=== PATIENT | male | born 1975 | race Hispanic/Latino ===

== ENCOUNTER 2017-02-14 10:15 | Observation (INO) | payer MEDICAID, OTHER ==
[2017-02-14 10:16] VITALS: BMI 33.0
--- NOTE | 2017-02-14 10:42 | C.PDOC ---
History Of Present Illness 41 year old male was brought to the ED by EMS after "blacking out while sleeping and falling out bed." HPI is limited due to poor historian, patient states a friend might have called EMS after he fell out of bed and reiterates that he blacked out while asleep. Patient has past medical history of depression , schizoaffective disorder, cocaine abuse, and has PRIOR overdose of wellbutrin/ lithium, and seizures DO and states he is complaint with medications. He sleeps next to a glass table but denies any injury, pain, or other complaints at this time. Time Seen by Provider: 02/14/17 10:29 Chief Complaint (Nursing): Seizure History Per: Patient History/Exam Limitations: other (poor historian ) Length Of Seizures (Duration): Unknown Recent travel outside of the [place]: No Additional History Per: EMS Past Medical History Reviewed: Historical Data, Nursing Documentation, Vital Signs Vital Signs: Last Vital Signs Temp 97.6 F 02/14/17 10:22 Pulse 74 02/14/17 11:39 Resp 12 02/14/17 12:31 BP 147/97 H 02/14/17 12:31 Pulse Ox 97 02/14/17 12:31 - Medical History PMH: Bipolar Disorder, Depression, HTN, Hypercholesterolemia, Schizophrenia - [facility] Procedures DPT ADMINISTRATION (03/25/15) GROUP PSYCHOTHERAPY (02/09/16) INDIVID PSYCHOTHERAP NEC (03/25/15) INDIVIDUAL PSYCHOTHERAPY, SUPPORTIVE (02/09/16) OTHER GROUP THERAPY (03/25/15) TETANUS TOXOID ADMINIST (01/01/14) VACCINATION NEC (12/27/14) Family History: States: Unknown Family Hx - Social History Hx Alcohol Use: No Hx Substance Use: No Review Of Systems Constitutional: Negative for: Fever, Chills, Sweats Eyes: Negative for: Vision Change Cardiovascular: Negative for: Chest Pain, Palpitations Respiratory: Negative for: Cough, Shortness of Breath Gastrointestinal: Negative for: Nausea, Vomiting, Abdominal Pain, Diarrhea Genitourinary: Negative for: Incontinence Skin: Negative for: Rash Neurological: Negative for: Weakness, Numbness, Headache, Dizziness Psych: Negative for: Suicidal ideation Physical Exam - Physical Exam Appears: Non-toxic, No Acute Distress Skin: Warm, Dry Head: Other (3cm superficial abrasion on right forehead) Eye(s): bilateral: PERRL, EOMI Tongue: Normal Appearing, No Swelling, No Lesions, No Bite, No Laceration Lips: Normal Appearing, No Swelling, No Contusion, No Abrasion Neck: Supple Chest: Symmetrical, No Deformity Cardiovascular: Rhythm Regular Respiratory: No Rales, No Rhonchi, No Stridor, No Wheezing Gastrointestinal/Abdominal: Soft, No Tenderness, No Distention, No Guarding, No Rebound Extremity: Normal ROM, No Tenderness Extremity: Right: Other (abrasion top r shoulder), Bilateral: Normal ROM Neurological/Psych: Normal Speech, Normal Cognition, Normal Motor, Other (flat affect, awake, alert, and appropriate ) ED Course And Treatment - Laboratory Results Result Diagrams: 02/14/17 11:02 02/14/17 11:02 ECG Rhythm: Sinus Rhythm (normal sinus rhythm 83 bpm) Interpretation Of ECG: Possible left atrial enlargement. Left ventricular hypertrophy O2 Sat by Pulse Oximetry: 97 (room air ) - Radiology CXR: Interpreted by Me, Viewed By Me CXR Interpretation: No: Infiltrates Progress - Data Reviewed Data Reviewed: Lab, Diagnostic imaging, EKG, Old records - Critical Care Citical Care: Excluding Proc Time Critical Care Time: 120 minutes Medical Decision Making Medical Decision Making: MDM ?BREAKTHROUGH SZ, HO PRIOR INTENTIONAL OVERDOSE AND DRUG ABUSE. PT POOR HISTORIAN. FLAT AFFECT, ACUTE INTOX VS DUE TO SCHIZOAFFECTIVE DO. OVERDOSE/SZ WORKUP ED OBSERVATION Discharge: Yes Date of observation admission: 02/14/17 Time of observation admission: 10:30 - Observation admission statement Patient is being placed in observation because:: SEIZURE VS OVERDOSE - Goals of Observation Goals of observation are:: MED CLEAR, NO RECUR SZ - Progress Note Progress Note: 02/14/17 12:23 EXAM UNCH FROM INITIAL. PS "I FEEL FINE". STATES NO LONGER ON ANY SZ MEDS. PS LAST SZ 2015 FAMILY AND FRIEND @ BEDSIDE. FAMILY STATES HEARD PT FALL AND STRUCK GLASS TABLE. PT WAS "NORMAL" THIS MORNING. UA PENDING. 02/14/17 13:37 ambul wo diff. exam unch from prior. vss. Disposition Counseled Patient/Family Regarding: Studies Performed, Diagnosis, Need For Followup - Disposition Disposition: HOME/ ROUTINE Disposition Time: 13:38 Condition: GOOD - Clinical Impression Clinical Impression: Minor head injury, Shoulder abrasion, Fall, Forehead abrasion - Scribe Statement The provider has reviewed the documentation as recorded by the Zebibkristofer Regan All medical record entries made by the Bo were at my direction and personally dictated by me. I have reviewed the chart and agree that the record accurately reflects my personal performance of the history, physical exam, medical decision making, and the department course for this patient. I have also personally directed, reviewed, and agree with the discharge instructions and disposition.
--- NOTE | 2017-02-14 11:10 | RAD ---
PROCEDURE: CHEST RADIOGRAPH, 1 VIEW. Portable study 10:40 HISTORY: SEIZURE ?OVERDOSE COMPARISON: None available. FINDINGS: LUNGS: Clear. PLEURA: No pneumothorax or pleural fluid seen. CARDIOVASCULAR: Normal. OSSEOUS STRUCTURES: No significant abnormalities. VISUALIZED UPPER ABDOMEN: Normal. OTHER FINDINGS: None. IMPRESSION: No active disease. Concordant results with the preliminary interpretation rendered by the emergency department physician procedure.
[2017-02-14 11:12] LABS: VENOUS BLOOD GAS BASE EXCESS -0.7 mmol/L (0.0-2.0); VENOUS BLOOD GAS PCO2 56 mmHg (40-60); VENOUS BLOOD PH 7.29 (7.32-7.43)
[2017-02-14 11:19] LABS: BASO # 0.1 K/uL (0.0-0.2); BASO % 0.8 % (0.0-2.0); EOS # 0.4 K/uL (0.0-0.7); EOS % 2.9 % (0.0-4.0); HEMATOCRIT 40.9 % (35.0-51.0); LYMPH # 1.4 K/uL (1.0-4.3); LYMPH % 10.4 % (20.0-40.0); MEAN CELL VOLUME 86.7 fL (80.0-94.0); MEAN CORPUSCULAR HEMOGLOBIN 29.2 pg (27.0-31.0); MEAN CORPUSCULAR HGB CONC 33.7 g/dL (33.0-37.0); MEAN PLATELET VOLUME 9.2 fL (7.2-11.7); MONO # 0.8 K/uL (0.0-0.8); MONO % 6.3 % (0.0-10.0); RED CELL DISTRIBUTION WIDTH 13.7 % (11.5-14.5); WHITE BLOOD COUNT 13.1 K/uL (4.8-10.8)
[2017-02-14 11:24] LABS: CHLORIDE 96 mmol/L (98-107); SODIUM 134 mmol/L (132-148)
[2017-02-14 11:25] LABS: POTASSIUM 4.9 mmol/L (3.6-5.2)
[2017-02-14 11:26] LABS: GFR AFRICAN-AMERICAN > 60
[2017-02-14 11:27] LABS: ALB/GLOB RATIO 1.9 (1.0-2.1); ALKALINE PHOSPHATASE 88 U/L (38-126); ALT/SGPT 32 U/L (21-72); AST/SGOT 38 U/L (17-59); BILIRUBIN,TOTAL 0.6 mg/dL (0.2-1.3); BLOOD UREA NITROGEN 14 mg/dL (9-20); CARBON DIOXIDE 25 mmol/L (22-30); TOTAL PROTEIN 8.5 g/dL (6.3-8.3)
[2017-02-14 11:28] LABS: ALCOHOL SERUM < 10 mg/dl (0-10); CALCIUM 9.2 mg/dl (8.6-10.4); GLUCOSE,RANDOM 203 mg/dL (75-110)
[2017-02-14 11:32] LABS: LITHIUM < 0.2 mmol/L (0.6-1.2)
[2017-02-14 11:40] LABS: VALPROIC ACID < 10.0 ug/mL (50.0-100.0)
--- NOTE | 2017-02-14 12:09 | CT ---
PROCEDURE: CT HEAD WITHOUT CONTRAST. HISTORY: Overdose COMPARISON: 12/27/2014 TECHNIQUE: Axial computed tomography images were obtained through the head/brain without intravenous contrast. Radiation dose: Total exam DLP = 1058.84 mGy-cm. This CT exam was performed using one or more of the following dose reduction techniques: Automated exposure control, adjustment of the mA and/or kV according to patient size, and/or use of iterative reconstruction technique. FINDINGS: HEMORRHAGE: No intracranial hemorrhage. BRAIN: No mass effect or edema. No atrophy or chronic microvascular ischemic changes. VENTRICLES: Unremarkable. No hydrocephalus. CALVARIUM: Unremarkable. PARANASAL SINUSES: Unremarkable as visualized. No significant inflammatory changes. MASTOID AIR CELLS: Unremarkable as visualized. No inflammatory changes. OTHER FINDINGS: None. IMPRESSION: No acute intracranial abnormalities. No significant findings to account for the clinical presentation. No significant interval change compared to the prior examination(s).
[2017-02-14 13:24] LABS: RBC URINE 3 /hpf (0-3); URINE BILIRUBIN NEGATIVE (NEGATIVE); URINE BLOOD NEGATIVE (NEGATIVE); URINE COLOR Yellow (YELLOW); URINE GLUCOSE (UA) NORMAL (Normal); URINE KETONE TRACE mg/dL (NEGATIVE); URINE LEUKOCYTE ESTERASE NEG Leu/uL (Negative); URINE PROTEIN 1+ mg/dL (NEGATIVE); URINE UROBILINOGEN NORMAL mg/dL (0.2-1.0); WBC URINE 4 /hpf (0-5)
[2017-02-14 13:50] VITALS: BP 155/95; PULSE 89; RESP 20; TEMP 97.8; O2SAT 96
--- NOTE | 2017-02-16 01:58 | CARD ---
APPROVED REPORT EKG Measurement Heart [id number] <Conclusion> Normal sinus rhythm Possible Left atrial enlargement Left ventricular hypertrophy Abnormal ECG
== END 2017-02-14 13:38 | disposition home or self-care (01) ==
LOC: C.ER 10:15 → C.9OBSV 10:30
PROVIDERS: ADMIT Emergency Medicine; ATTEND Emergency Medicine
DX: R56.9 Unspecified convulsions (principal); E78.00 Pure hypercholesterolemia, unspecified; F31.9 Bipolar disorder, unspecified; Z91.5 Personal history of self-harm; I10 Essential (primary) hypertension; S00.83XA Contusion of other part of head, initial encounter; W19.XXXA Unspecified fall, initial encounter
CPT/HCPCS: 70450; 71010; 80053; 80164; 80178; 80320; 80324; 80329; 80345; 80346; 80349; 80353; 80358; 80361; 81001; 82803; 82948; 83992; 85025; G0378

== ENCOUNTER 2017-07-19 00:33 | Emergency (ER) | payer MEDICAID, OTHER ==
[2017-07-19 00:33] VITALS: BMI 33.0
[2017-07-19 01:54] LABS: BASO # 0.1 K/uL (0.0-0.2); BASO % 0.7 % (0.0-2.0); EOS # 1.3 K/uL (0.0-0.7); EOS % 7.5 % (0.0-4.0); HEMATOCRIT 41.3 % (35.0-51.0); LYMPH # 2.9 K/uL (1.0-4.3); LYMPH % 16.3 % (20.0-40.0); MEAN CELL VOLUME 87.7 fL (80.0-94.0); MEAN CORPUSCULAR HEMOGLOBIN 29.6 pg (27.0-31.0); MEAN CORPUSCULAR HGB CONC 33.7 g/dL (33.0-37.0); MEAN PLATELET VOLUME 8.7 fL (7.2-11.7); MONO # 1.6 K/uL (0.0-0.8); MONO % 9.1 % (0.0-10.0); RED CELL DISTRIBUTION WIDTH 14.4 % (11.5-14.5); WHITE BLOOD COUNT 17.8 K/uL (4.8-10.8)
[2017-07-19 01:59] LABS: CHLORIDE 99 mmol/L (98-107); POTASSIUM 4.1 mmol/L (3.6-5.2); SODIUM 135 mmol/L (132-148)
[2017-07-19 02:01] LABS: ALB/GLOB RATIO 1.1 (1.0-2.1); AST/SGOT 331 U/L (17-59); BILIRUBIN,TOTAL 0.7 mg/dL (0.2-1.3); CARBON DIOXIDE 24 mmol/L (22-30); GFR AFRICAN-AMERICAN > 60; TOTAL PROTEIN 8.3 g/dL (6.3-8.3)
[2017-07-19 02:02] LABS: ALCOHOL SERUM < 10 mg/dl (0-10); ALKALINE PHOSPHATASE 78 U/L (38-126); ALT/SGPT 103 U/L (21-72); BLOOD UREA NITROGEN 20 mg/dL (9-20); CALCIUM 9.1 mg/dl (8.6-10.4); GLUCOSE,RANDOM 84 mg/dL (75-110)
--- NOTE | 2017-07-19 02:33 | C.PDOC ---
History Of Present Illness 41 y/o male with a hx schizoaffective and bipolar disorder, c/o hearing voices for a while now. Patient notes hearing voices of his mother speaking, noting she is . Patient was recently discharge from [facility] and is non-complaint with his meds. Denies headache, nausea, vomiting, fever, or chills. No SI or HI. Time Seen by Provider: 07/19/17 00:42 Chief Complaint (Nursing): Psychiatric Evaluation History Per: Patient History/Exam Limitations: no limitations Onset/Duration Of Symptoms: Days Current Symptoms Are (Timing): Still Present Suicide/Self Injury Attempted (Context): None Severity: Mild Associated Symptoms: denies: Suicidal Thoughts, Suicidal Plan Recent travel outside of the [place]: No Additional History Per: Patient Past Medical History Reviewed: Historical Data, Nursing Documentation, Vital Signs Vital Signs: Last Vital Signs Temp 97.4 F L 07/19/17 00:37 Pulse 105 H 07/19/17 00:37 Resp 16 07/19/17 00:37 BP 130/91 H 07/19/17 00:37 Pulse Ox 97 07/19/17 03:04 - Medical History PMH: Bipolar Disorder, Depression, HTN, Hypercholesterolemia, Schizophrenia Denies: Alzheimer's Disease, Anemia, Arthritis, Asthma, Atrial Fibrillation, Bronchitis, Cardia Arrhythmia, CHF, COPD, Crohn's Disease, Dementia, Diabetes, Diverticulitis, Emphysema, Fractures, Gastritis, Gall Bladder Disease, Hepatitis , HIV, Hyperthyroidism, Hypothyroidism, Kidney Stones, Migraine, Mitral Valve Prolapse, Multiple Sclerosis, Osteoporosis, Pancreatitis, Parkinson's Disease, Peripheral Edema, Pneumonia, Pulmonary Embolism, Chronic Kidney Disease, Rheumatoid Arthritis, Seizures, Sickle Cell Disease, Sexually Transmitted Disease, TIA Surgical History: Denies: Appendectomy, CABG, Carotid Endarterectomy, Cholecystectomy, Coronary Stent, Pacemaker, Tonsillectomy - [facility] Procedures DPT ADMINISTRATION (03/25/15) GROUP PSYCHOTHERAPY (03/24/17) INDIVID PSYCHOTHERAP NEC (03/25/15) INDIVIDUAL PSYCHOTHERAPY, COGNITIVE-BEHAVIORAL (03/24/17) INDIVIDUAL PSYCHOTHERAPY, SUPPORTIVE (02/09/16) OTHER GROUP THERAPY (03/25/15) TETANUS TOXOID ADMINIST (01/01/14) VACCINATION NEC (12/27/14) Family History: States: Unknown Family Hx - Social History Hx Alcohol Use: Yes Hx Substance Use: Yes - Immunization History Hx Tetanus Toxoid Vaccination: No Hx Influenza Vaccination: No Hx Pneumococcal Vaccination: No Review Of Systems Except As Marked, All Systems Reviewed And Found Negative. Constitutional: Negative for: Fever, Chills Gastrointestinal: Negative for: Nausea, Vomiting Neurological: Negative for: Headache Psych: Positive for: Psychosis (Hearing voices). Negative for: Suicidal ideation, Other (HI) Physical Exam - Physical Exam Appears: Non-toxic, No Acute Distress Skin: Warm, Dry Head: Atraumatic, Normacephalic Eye(s): bilateral: Normal Inspection Chest: Symmetrical Cardiovascular: Rhythm Regular, No Murmur Respiratory: Normal Breath Sounds, No Rales, No Rhonchi, No Wheezing Gastrointestinal/Abdominal: Soft, No Tenderness Neurological/Psych: Oriented x3 ED Course And Treatment - Laboratory Results Result Diagrams: 07/19/17 01:48 07/19/17 01:48 O2 Sat by Pulse Oximetry: 97 (RA) Pulse Ox Interpretation: Normal Medical Decision Making Medical Decision Making: Plans: * Blood labs * UA * Crisis eval Disposition Counseled Patient/Family Regarding: Studies Performed, Diagnosis - Disposition Disposition: HOME/ ROUTINE Disposition Time: 03:19 Condition: STABLE Additional Instructions: Follow up with [facility] as directed by the crisis team. Instructions: Schizoaffective Disorder (ED) Forms: [facility] (Croatian) - POA Present On Arrival: None - Clinical Impression Clinical Impression: Alcohol abuse, Bipolar 1 disorder - Scribe Statement The provider has reviewed the documentation as recorded by the Scribe Kim [email or web address] All medical record entries made by the Scribe were at my direction and personally dictated by me. I have reviewed the chart and agree that the record accurately reflects my personal performance of the history, physical exam, medical decision making, and the department course for this patient. I have also personally directed, reviewed, and agree with the discharge instructions and disposition.
[2017-07-19 02:59] LABS: RBC URINE 2 /hpf (0-3); URINE BILIRUBIN NEGATIVE (NEGATIVE); URINE BLOOD NEGATIVE (NEGATIVE); URINE COLOR Yellow (YELLOW); URINE GLUCOSE (UA) NORMAL (Normal); URINE KETONE 1+ mg/dL (NEGATIVE); URINE LEUKOCYTE ESTERASE NEG Leu/uL (Negative); URINE PROTEIN NEGATIVE (NEGATIVE); WBC URINE 3 /hpf (0-5)
[2017-07-19 03:40] VITALS: BP 127/83; PULSE 108; RESP 18; TEMP 98.6; O2SAT 95
== END 2017-07-19 03:47 | disposition home or self-care (01) ==
LOC: C.ER 00:33
DX: F10.10 Alcohol abuse, uncomplicated (principal); F31.9 Bipolar disorder, unspecified; E78.00 Pure hypercholesterolemia, unspecified; I10 Essential (primary) hypertension